=== PATIENT | female | born 1950 | race Caucasian/White ===

== ENCOUNTER → 2017-07-05 | Outpatient (CLI) | payer MEDICARE, OTHER ==
--- NOTE | 2017-07-05 14:34 | RAD ---
DATE: 07/05/2017 EXAM: DIGITAL SCREEN BILAT W/CAD HISTORY: Screening COMPARISON: One year earlier This study was interpreted with the benefit of Computerized Aided Detection (CAD). FINDINGS: Breast Density: HETERO The breast parenchyma Is heterogeneiously dense, which could reduce sensitivity of mammography. Breast parenchyma level C. There is a nodular in the subareolar position of the left breast. [facility] compression imaging and targeted ultrasound advised IMPRESSION: Nodular density left breast. [facility] compression image and targeted ultrasound advised BI-RADS CATEGORY: 0 INCOMPLETE: NEED ADDITIONAL IMAGING EVAULATION AND/OR PRIOR MAMMOGRAMS FOR COMPARISON RECOMMENDED FOLLOW-UP: ADD ADDITIONAL IMAGING PQRS compliance statement: Patient information was entered into a reminder system with a target due date soon for the next mammogram. Mammography is a sensitive method for finding small breast cancers, but it does not detect them all and is not a substitute for careful clinical examination. A negative mammogram does not negate a clinically suspicious finding and should not result in delay in biopsying a clinically suspicious abnormality. "Our facility is accredited by the [employer] Mammography [employer]."
== END | disposition home or self-care (01) ==
LOC: MAMMO 13:07
PROVIDERS: ATTEND Obstetrics & Gynecology
DX: Z12.31 Encounter for screening mammogram for malignant neoplasm of breast (principal)
CPT/HCPCS: G0202; 77067

== ENCOUNTER → 2017-07-15 | Outpatient (CLI) | payer MEDICARE, OTHER ==
--- NOTE | 2017-07-15 11:30 | RAD ---
DATE: 07/15/2017. EXAM: DIGITAL DIAGNOSTIC LT, ULTRASOUND BREAST LEFT. HISTORY: Density on mammographic screening. Additional imaging is requested. COMPARISON: 07/05/2017. FINDINGS: The breast parenchyma is heterogeneously dense, which could reduce sensitivity of mammography. Breast parenchyma level C.. The density of concern slightly medially and superiorly on the left persists on spot compression. It is mildly lobulated but partially circumscribed and partially obscured. Scattered calcifications appear benign. On today's sonography, this corresponds with a cluster of small cysts versus a multiseptated cyst at the 11:00 position. It measures 1.2 x 0.8 x 0.9 cm. There is no internal flow. Also the 12:00 position 4 cm from the nipple, there is oval mass with mild internal echoes and likely represents a mildly complicated cyst. There is no suspicious sonographic finding. BI-RADS CATEGORY: 3 PROBABLY BENIGN FINDING(S)-SHORT INTERVAL FOLLOW-UP SUGGESTED. RECOMMENDED FOLLOW-UP: 6M 6 MONTH FOLLOW-UP. PQRS compliance statement: Patient information was entered into a reminder system with a target due date 01/12/2018 for the next mammogram. Mammography is a sensitive method for finding small breast cancers, but it does not detect them all and is not a substitute for careful clinical examination. A negative mammogram does not negate a clinically suspicious finding and should not result in delay in biopsying a clinically suspicious abnormality. "Our facility is accredited by the [employer] Mammography [employer]."
== END | disposition home or self-care (01) ==
LOC: MAMMO 10:45
PROVIDERS: ATTEND Obstetrics & Gynecology
DX: N63 Unspecified lump in breast (principal)
CPT/HCPCS: 76641; G0206; 77065

== ENCOUNTER → 2018-01-13 | Outpatient (CLI) | payer MEDICARE, OTHER | END | disposition home or self-care (01) | LOC: MAMMO 10:08 | DX: N63.20 Unspecified lump in the left breast, unspecified quadrant (principal) | CPT/HCPCS: 76641; 77065 ==

== ENCOUNTER → 2018-07-19 | Outpatient (CLI) | payer MEDICARE, OTHER ==
--- NOTE | 2018-07-19 11:12 | RAD ---
DATE: 07/19/2018 EXAM: MAMMO MILAGROS FRANCIEG BILAT, BREAST LEFT HISTORY: Follow-up left breast nodule, right breast screening COMPARISON: 01/13/2018, 07/15/2017 , 07/05/2017 This study was interpreted with the benefit of Computerized Aided Detection (CAD). Breast Density: HETERO The breast parenchyma is heterogenously dense, which could reduce sensitivity of mammography. Breast parenchyma level C. FINDINGS: 2-D and 3-D tomosynthesis imaging was performed in CC and MLO projections. The fibroglandular tissues are heterogeneous in a nodular pattern. The scattered smooth nodules in both breasts are better demonstrated on the current 3-D views compared to the previous 2-D imaging. Multiple bilateral smooth nodule such as this tend to be benign. The small opacity seen medially in the left breast on the 07/05/2017 study appears unchanged to slightly smaller. No new or enlarging breast densities are seen. No spiculated mass or architectural distortion is evident. Minimal benign type calcification is present. No suspicious microcalcifications have developed. Left breast ultrasound, 07/19/2018: A targeted ultrasound exam of the left breast was performed in the areas where abnormalities were identified on the 01/13/2018 study. At the 11:00 location approximately 3 cm from the nipple there is a cluster of hypoechoic and anechoic nodules, most likely representing cysts. The overall process currently measures 8 x 6 x 10 mm compared to measurements of 7 x 7 x 6 mm on the previous study. At the 12:00 location approximately 4 cm from the nipple there are 2 smooth rounded nodules. One of these currently appears anechoic with posterior acoustic enhancement compatible with a simple cyst. It measures 7 x 6 x 6 mm. It may have increased slightly in size by 1-2 mm. An adjacent slightly smaller nodule demonstrates low level internal echoes, likely a complicated cyst. It measures 6 x 5 x 5 mm, and is of similar size compared to the previous study. IMPRESSION: 1. Stable bilateral mammograms without evidence of malignancy. 2. Probable left breast cyst cluster, simple and complicated cysts which show slight equivocal interval increase in size. Follow-up left breast ultrasound in 6 months and bilateral mammography at one year is suggested. BI-RADS CATEGORY: 3 PROBABLY BENIGN FINDING(S)-SHORT INTERVAL FOLLOW-UP SUGGESTED RECOMMENDED FOLLOW-UP: 6M 6 MONTH FOLLOW-UP PQRS compliance statement: Patient information was entered into a reminder system with a target due date for the next mammogram. Mammography is a sensitive method for finding small breast cancers, but it does not detect them all and is not a substitute for careful clinical examination. A negative mammogram does not negate a clinically suspicious finding and should not result in delay in biopsying a clinically suspicious abnormality. "Our facility is accredited by the [employer] Mammography [employer]."
== END | disposition home or self-care (01) ==
LOC: MAMMO 09:45
PROVIDERS: ATTEND Obstetrics & Gynecology
DX: R92.8 Other abnormal and inconclusive findings on diagnostic imaging of breast (principal)
CPT/HCPCS: 76641; 77066; G0279; 77062

== ENCOUNTER → 2019-01-17 | Outpatient (CLI) | payer MEDICARE, OTHER ==
--- NOTE | 2019-01-17 11:03 | RAD ---
Left breast ultrasound, 01/17/2019: History: Follow-up probable cysts Comparison is made to a study from 07/19/2018. A targeted ultrasound exam of the superior aspect left breast was performed for probable cysts were identified on the previous study. At the 11:00 location approximately 3 cm from the nipple there is a cluster of anechoic and hypoechoic nodules, most likely representing cysts. This process currently measures 7 x 4 x 10 mm compared to measurements of 8 x 6 x 10 mm on the previous study. At the 12:00 location approximately 4 cm from the nipple there are 2 small smooth probable cysts. Only faint low level echoes are seen within one of these structures. Both of these lesions measure approximately 6 mm and appear unchanged since previous study. No new sonographic abnormality is seen in this region. IMPRESSION: Stable probable left breast cysts as described above. Further sonographic follow-up in 6 months at the time of the patient's yearly mammography is suggested. BI-RADS 3-probably benign findings
== END | disposition home or self-care (01) ==
LOC: US 10:18
PROVIDERS: ATTEND Obstetrics & Gynecology
DX: N63.22 Unspecified lump in the left breast, upper inner quadrant (principal)
CPT/HCPCS: 76641

== ENCOUNTER → 2019-07-23 | Outpatient (CLI) | payer MEDICARE, OTHER ==
--- NOTE | 2019-07-23 13:53 | RAD ---
DATE: 07/23/2019 EXAM: MAMMO MILAGROS DIAG BILAT HISTORY: Left breast masses, six-month follow-up. COMPARISON: Bilateral mammogram 07/19/2018, left mammogram 01/13/2018, 07/15/2017, bilateral mammogram 07/05/2017. Left breast ultrasound 07/19/2018 and 01/13/2018 This study was interpreted with the benefit of Computerized Aided Detection (CAD). Breast Density: SCATTERED The breast parenchyma shows scattered fibroglandular densities. Breast parenchyma level B. FINDINGS: Bilateral CC and MLO views of the breasts were performed. Bilateral breast tomosynthesis was performed in CC and MLO projections. Right breast: There are no suspicious microcalcifications, masses or areas of architectural distortion. Left breast: There are no suspicious microcalcifications, masses or areas of architectural distortion. Findings are stable from prior mammogram. Targeted sonographic evaluation of the left breast was performed. At the 12:00 position, 4 segments of the nipple there are 2 adjacent circumscribed masses which are predominantly cystic with minimal debris measuring 6 and 5 mm. These findings are stable and present benign. At the 11:00 position, 3 cm from the nipple, there is either a cluster of cysts or a complicated cyst measuring 9 mm which is stable. However, there is a new circumscribed hypoechoic mass measuring 5 x 3 x 3 mm with through transmission and parallel orientation most suggestive of a complicated cyst. Complex cyst remains in the differential although there is no definite mural nodule or internal flow characteristics. Six-month follow-up is recommended to assess stability as this finding is probably benign. IMPRESSION: 1. Probably benign likely complicated cyst in the left breast at the 11:00 position, 3 cm of the nipple, new from the prior examination. Targeted sonographic evaluation of this mass is recommended in 6 months. 2. Otherwise, stable likely complicated cysts in the left breast presumed benign. 3. Negative right breast. BI-RADS CATEGORY: 3 PROBABLY BENIGN FINDING(S)-SHORT INTERVAL FOLLOW-UP SUGGESTED RECOMMENDED FOLLOW-UP: 6M 6 MONTH FOLLOW-UP PQRS compliance statement: Mammography is a sensitive method for finding small breast cancers, but it does not detect them all and is not a substitute for careful clinical examination. A negative mammogram does not negate a clinically suspicious finding and should not result in delay in biopsying a clinically suspicious abnormality. "Our facility is accredited by the [employer] Mammography [employer]."
== END | disposition home or self-care (01) ==
LOC: MAMMO 12:29
PROVIDERS: ATTEND Internal Medicine
DX: R92.8 Other abnormal and inconclusive findings on diagnostic imaging of breast (principal)
CPT/HCPCS: 76641; 77066; G0279; 77062

== ENCOUNTER → 2020-02-25 | Outpatient (CLI) | payer MEDICARE, OTHER ==
--- NOTE | 2020-02-25 12:25 | RAD ---
EXAM: Left breast ultrasound. HISTORY: Six-month follow-up of left breast masses. COMPARISON: 07/15/2017, 01/17/2019, 07/23/2019. FINDINGS: Sonography of the left breast was performed at the prior site of concern. At the 12:00 position 4 cm from the nipple, 2 adjacent hypoechoic nodules measure 6 x 6 x 5 mm and 5 x 5 x 4 mm, respectively. These are consistent with mildly complicated cysts and appear unchanged. At the 11:00 position 3 cm from the nipple, another hypoechoic mass measures 6 x 4 mm and is adjacent to some hypoechoic parenchyma. This appears stable chronically. BI-RADS Category 3: Probably benign findings. IMPRESSION: 1. The left breast masses of concern appear stable chronically and most likely represent benign complicated cysts. A final sonographic follow-up can be performed when the patient returns for yearly mammographic screening in July 2020. Electronically signed by: Nasima Adams MD (02/25/2020 12:22 PM) [id number]
== END | disposition home or self-care (01) ==
LOC: US 10:42
PROVIDERS: ATTEND Internal Medicine
DX: N63.22 Unspecified lump in the left breast, upper inner quadrant (principal); N60.02 Solitary cyst of left breast
CPT/HCPCS: 76641

== ENCOUNTER → 2020-09-29 | Outpatient (CLI) | payer MEDICARE, OTHER ==
--- NOTE | 2020-09-29 13:52 | RAD ---
DATE: 09/29/2020 12:42 PM EXAM: DIGITAL DIAGNOSTIC BILATERAL, BREAST LEFT HISTORY: Patient is due for screening presents for short-term follow-up probably benign nodularity in the left breast. COMPARISON: Bilateral screening mammogram of 07/05/2017, left diagnostic mammogram of 07/15/2017 and breast ultrasound that same date, bilateral diagnostic mammogram of 07/23/2019 and left breast ultrasound of 02/25/2020 Bilateral CC and MLO views of the breasts were performed. Bilateral breast tomosynthesis was performed in CC and MLO projections. This study was interpreted with the benefit of Computerized Aided Detection (CAD). Targeted ultrasound of the superior left breast in the area of previous sonographic interest was also performed. FINDINGS: Breast Density: SCATTERED The breast parenchyma shows scattered fibroglandular densities. Breast parenchyma level B No suspicious masses, microcalcifications or architectural distortion is present to suggest malignancy in either breast. The visualized axillae are mammographically unremarkable. Targeted ultrasound of the superior left breast identified a pair of sonographically benign cysts measuring 5 and 6 mm at the 12:00 position 4 cm from the nipple, showing no interval significant change. Additional benign side identified at the 11:00 position 3 cm from the nipple, measuring 4 x 8 mm. Sonographic survey of the left axilla revealed no adenopathy. IMPRESSION: No mammographic evidence of malignancy. BI-RADS CATEGORY: 2 BENIGN FINDING(S) RECOMMENDED FOLLOW-UP: 12M 12 MONTH FOLLOW-UP Annual screening mammography is recommended, unless clinically indicated sooner based on symptoms or change in physical exam. PQRS compliance statement: Patient information was entered into a reminder system with a target due date for the next mammogram. Mammography is a sensitive method for finding small breast cancers, but it does not detect them all and is not a substitute for careful clinical examination. A negative mammogram does not negate a clinically suspicious finding and should not result in delay in biopsying a clinically suspicious abnormality. "Our facility is accredited by the [employer] Mammography [employer]."
== END ==
LOC: MAMMO 12:30
PROVIDERS: ATTEND Obstetrics & Gynecology
DX: N60.02 Solitary cyst of left breast (principal)
CPT/HCPCS: 76641; 77066

== ENCOUNTER → 2021-11-24 | Outpatient (CLI) | payer MEDICARE, OTHER ==
--- NOTE | 2021-11-24 16:19 | RAD ---
Bilateral digital screening 2-D and 3-D (tomosynthesis) mammogram: Reason for examination: Routine screening. Comparison is made to previous mammograms from 09/29/2020, 07/23/2019, and 07/05/2017. Bilateral mammograms in CC and oblique projections were obtained with 2-D imaging and 3-D tomosynthes is imaging and reviewed on the workstation. Interpretation was made with the benefit of CAD. Findings: Breast density: Category C. The breasts are heterogeneously dense, which may obscure small masses. There are no suspicious masses, malignant appearing calcifications or architectural distortion. There are multiple tiny oval circumscribed masses both breasts. These are likely due to cysts. Left breast cysts were identified on previous ultrasounds. Impression: No evidence of malignancy. ASSESSMENT: BI-RADS 2. Benign findings. Recommendations: Routine screening mammograms. This patient's information has been entered into a reminder system for the patient to be notified wit h the results of her examination and a target date for the next mammogram. Your patient's mammogram demonstrates that she has dense breast tissue (breast density category C or D), which could hide abnormalities, and if she has other risk factors for breast cancer that have bee n identified, she might benefit from supplemental screening tests that may be suggested by you as her ordering physician. Dense breast tissue, in and of itself, is a relatively common condition. Therefo re, this information is not provided to cause undue concern, but rather to raise your awareness and t o promote discussion with your patient regarding the presence of other risk factors, in addition to d ense breast tissue. Electronically signed by: Eliza Guerrier MD (11/24/2021 4:17 PM) [id number]
== END ==
LOC: MAMMO 12:17
PROVIDERS: ATTEND Internal Medicine
DX: Z12.31 Encounter for screening mammogram for malignant neoplasm of breast (principal)
CPT/HCPCS: 77063; 77067